=== PATIENT | female | born 1950 | race Caucasian/White ===

== ENCOUNTER 2019-09-12 05:39 | Day surgery (SDC) | payer MEDICARE, SELFPAY ==
[2019-09-12 06:12] VITALS: BP 143/77; PULSE 55; RESP 16; TEMP 36.3; O2SAT 100; BMI 28.5
[2019-09-12] MEDS: Lactated Ringers 1,000 ML 100 ML IV (06:34)
--- NOTE | 2019-09-12 07:18 | HP.PCM_ITS ---
History of Present Illness Date of Admission: 09/12/19 The patient is a 69 year old F who presents for screening endoscopy. Her last colonoscopy was 10 years ago. Past Medical/Surgical History - Planned Operation Planned Operative Procedure/s: cscope Date of Operative Procedure: 09/12/19 Permit Signed: No S.O.S: No Is This Patient Having a Total Joint: No - Previous Hospitalizations/Surgeries HX Hospitalizations: No HX of Surgeries: right and left cataract. right tkr 2018. left tkr. to nsillectomy as child. partial hysterectomy. carpal tunnel bilat. sigmoid colectomy. gallbladder. cscope x2. ercp for gallstone Any Problems With Anesthesia: Yes - n,v You/Your Family Experience Fever (Hyperthermia) With Anes: No Cholinesterase deficiency: No - Cardiovascular Hx Chest Pain within Last 2 months: No Hx of Irregular Heartbeat and/or Afib: Yes - hx of afib/dr vickers/[facility] Hx Heart Attack: No Hx Congestive Heart Failure: No Hx Rheumatic Fever: No Hx Hypertension: Yes - controlled with med Hx Internal Defibrillator: No Hx Pacemaker: No Hx Cardiac Catheterization: Yes - 5 yrs ago What facility was last heart cath performed: [facility] Date of last Heart Cath: 5 yrs ago Hx Cardiac Surgery/Stents/Etc.: No Hx Stress Test: Yes - 5 yrs ago/echo 2017 HX Edema: No Hx Pain in Legs when Walking/Leg Cramps: No - Respiratory Chronic Cough: No HX of Shortness of Breath: No Hoarseness: No Hx Chronic Obstructive Pulmonary Disease (COPD): No Hx Asthma: No Hx Emphysema: No Hx Sleep Apnea: No Hx Oxygen Use at Home: No Hx Respiratory Tract Infection/Cold (presently): No Do You Snore Loudly (louder than talking or can be heard): No Do You Often Feel Tired/ Fatigued/ Sleepy Dring Daytime?: Yes Has Anyone Observed You Stop Breathing During Sleep?: No Result (for STOP score): Positive Hx Smoking: No Smoking Status: Never smoker - Gastrointestinal Hx Gastroesophageal Reflux: No - occ heartburn/otc prn Hx Gastrointestinal Disorders: Yes - colectomy in the past Hx Gastrointestinal Bleed: No Hx Ulcer: No Hx Hiatal Hernia: No Difficulty Chewing/Swallowing: No Recent Onset of Swallowing Problems: No Special diet followed at home: No Hx Unplanned Weight Loss of 20#: No HX Unplanned Weight Gain of 20#: No - Neurological Hx Seizures: No HX Syncope/Blackout Spells/Unconsciousness: No Hx CVA/Stroke: No Hx Transient Ischemic Attacks (TIA): No Hx Multiple Sclerosis: No Hx Parkinson's Disease: No Hx Head/Neck Injury: No Hx Headaches: Yes - occ Hx Back Injury/Pain: No Recent Onset of Speech Difficulty: No Restless Legs: No Does patient have nerve stimulator: No Patient instructed to have device shut off: No Rep notified?: No - Blood Disorder Hx Leukemia: No Bleeding Tendencies: No Hx Deep Vein Thrombosis: No Hx High Cholesterol: No Blood Transmitted Disease: No Hx Hepatitis: No - yellow jaundice yrs ago after gallbladder surgery/pa ncreatitis Hx Cirrhosis: No Hx Anemia: No Hx Blood Disorders: No - Reproduction : No Is Patient Lactating: No Hx Hysterectomy: Yes Hx Tubal Ligation: No Are You Post Menopause: Yes - Genitourinary Hx Renal Disease: No - Musculoskeletal Hx Arthritis: Yes Hx Rheumatoid Arthritis: No Hx Gout: No Recent Onset of an Orthopedic Problem: No - Endocrine Hx Diabetes: No Thyroid Disease: No Hx Steroid Therapy: No - Psycho/Social Hx Substance Use: No Hx Alcohol Use: No Hx Anxiety: No Hx Depression: No Mental Illness: No Hx Dementia: No - Miscellaneous Hx Cancer: No Recent Exposure to Contagious Disease: No Active MRSA: No Hx of C-Diff: No Any Loose Teeth: No - partials Allergies erythromycin base Allergy (Verified 09/11/19 11:12) Unknown moxifloxacin [From Avelox] Allergy (Verified 09/11/19 11:13) Rash adhesive tape Adverse Reaction (Verified 09/11/19 11:13) Unknown codeine Adverse Reaction (Verified 09/11/19 11:12) Nausea - Discharge Is Pt Admitted From a Shelter, or a Penitentiary: No Who Could Help: family After D/C, Where Do you Plan to Go: Return Home - From the PAT History Number of Risk Factors: 1 - Physical Exam Vitals/I&O's: Vital Signs Temp Pulse Resp BP Pulse Ox 97.3 F L 55 L 16 143/77 H 100 09/12/19 06:12 09/12/19 06:12 09/12/19 06:12 09/12/19 06:12 09/12/19 06:12 Oxygen Delivery Method Room Air Weight: 150 lb 12.739 oz Body Mass Index (BMI) 28.5 General: Alert, Oriented x3 Lungs: Clear to auscultation Cardiovascular: Regular rate, Regular Rhythm, No murmurs Abdomen: Bowel Sounds Present, Soft, Non Tender, Non-Distended Current Medications Lactated Ringer's () 1,000 mls @ 100 mls/hr IV .Q10H MAURIZIO Last Admin: 09/12/19 06:34 Dose: 100 mls/hr Documented by: Assessment/Plan I will be to perform a colonoscopy. Surgery Risks - Colonoscopy Risks Include but are not Limited To: Risks include but are not limited to: Bleeding, perforation requiring further surgery, inability to complete colonoscopy requiring barium enema.
[2019-09-12 07:19] VITALS: BP 141/65; BP 143/77; PULSE 68; RESP 16; TEMP 36.9; O2SAT 99
--- NOTE | 2019-09-12 07:21 | OP.COLON_ITS ---
Patient Name: Lora Mccullough Procedure Date: 09/12/2019 6:48 AM Date of : 1950 Age: 69 Procedure: Colonoscopy Indications: Screening for colorectal malignant neoplasm Providers: Mannie Delgadillo MD Referring MD: Rambo Triana Md Medicines: See the Anesthesia note for documentation of the administered medications Patient Profile: This is a 69 year old female. Refer to note in patient chart for documentation of history and physical. Last Colonoscopy: 10 years ago. Complications: No immediate complications. Procedure: Pre-Anesthesia Assessment: - Prior to the procedure, a History and Physical was performed, and patient medications and allergies were reviewed. The patient's tolerance of previous anesthesia was also reviewed. The risks and benefits of the procedure and the sedation options and risks were discussed with the patient. All questions were answered, and informed consent was obtained. Prior Anticoagulants: The patient has taken no previous anticoagulant or antiplatelet agents. ASA Grade Assessment: II - A patient with mild systemic disease. After reviewing the risks and benefits, the patient was deemed in satisfactory condition to undergo the procedure. After I obtained informed consent, the scope was passed under direct vision. Throughout the procedure, the patient's blood pressure, pulse, and oxygen saturations were monitored continuously. The adult colonoscope was introduced through the anus and advanced to the cecum, identified by appendiceal orifice and ileocecal valve. The colonoscopy was performed without difficulty. The patient tolerated the procedure well. The quality of the bowel preparation was good. Scope In: 7:05:48 AM Scope Withdrawal Time 0 hours 6 minutes 14 seconds Scope Out: 7:14:42 AM Total Procedure Duration Time 0 hours 8 minutes 54 seconds Findings: Non-bleeding internal hemorrhoids were found during retroflexion. The hemorrhoids were mild and small. The exam was otherwise without abnormality. Impression: - Non-bleeding internal hemorrhoids. - The examination was otherwise normal. - No specimens collected. Recommendation: - Discharge patient to home. - Resume previous diet. - Continue present medications. - Repeat colonoscopy in 10 years for screening purposes. - Return to primary care physician (date not yet determined). Procedure Code(s): --- Professional --- G0121, Colorectal cancer screening; colonoscopy on individual not meeting criteria for high risk Diagnosis Code(s): --- Professional --- Z12.11, Encounter for screening for malignant neoplasm of colon K64.8, Other hemorrhoids CPT copyright 2017 [employer]. All rights reserved. The codes documented in this report are preliminary and upon optical fabricator review may be revised to meet current compliance requirements. MD Mannie Tucker MD 09/12/2019 7:21:08 AM This report has been signed electronically. Number of Addenda: 0 Note Initiated On: 09/12/2019 6:48 AM
[2019-09-12 07:25] VITALS: BP 139/75; BP 143/77; PULSE 65; RESP 16; O2SAT 98
[2019-09-12 07:30] VITALS: BP 143/77; BP 164/65; BP 178/70; PULSE 52; PULSE 58; RESP 16; TEMP 36.7; O2SAT 100; O2SAT 99
[2019-09-12 08:01] VITALS: BP 143/77
== END 2019-09-12 08:03 | disposition home or self-care (01) ==
LOC: EN 05:40 → AC 05:43
PROVIDERS: Family Provider Family Medicine; PCP Family Medicine; Referring Provider Family Medicine; Visit Provider Surgery
PROC: 0DJD8ZZ Inspection of Lower Intestinal Tract, Via Natural or Artificial Opening Endoscopic (ICD-10-PCS; CPT 45378; principal; 2019-09-12 06:55)
DX: Z12.11 Encounter for screening for malignant neoplasm of colon (principal); K64.8 Other hemorrhoids; I48.91 Unspecified atrial fibrillation; I10 Essential (primary) hypertension; M19.90 Unspecified osteoarthritis, unspecified site; Z87.19 Personal history of other diseases of the digestive system; Z78.0 Asymptomatic menopausal state; Z90.49 Acquired absence of other specified parts of digestive tract; Z79.82 Long term (current) use of aspirin; Z79.899 Other long term (current) drug therapy
CPT/HCPCS: G0121; J7120; J2405